=== PATIENT | male | born 1985 | race Caucasian/White ===

== ENCOUNTER 2016-11-26 20:21 | Emergency (ER) | payer OTHER ==
[~2016-11-26 20:21] MED LIST: NAPR500T2 PO; NORCOBULK PO; TRAM50TA2 PO
[2016-11-26] MEDS ORDERED: ACETAMINOPHEN 325 MG TAB As Ordered ONE (21:06)
[2016-11-26 21:32] LABS: BASO % 0.7 % (0.0-1.0); EOS # 0.4 K/mm3 (0.0-0.50); LARGE UNSTAINED CELL # 0.1 K/mm3 (0.0-0.4); LARGE UNSTAINED CELL % 1.7 % (0.0-4.0); LYMPH # 2.9 K/mm3 (1.5-4.5); LYMPH % 37.3 % (24.0-44.0); MEAN CORPUSCULAR HEMOGLOBIN 29.9 pg (27.0-33.0); MEAN CORPUSCULAR HGB CONC 35.2 g/dl (32.0-36.5); MONO # 0.4 K/mm3 (0.0-0.8); MONO % 5.8 % (0.0-5.0); NEUTROPHILS # 3.7 K/mm3 (1.8-7.7); NEUTROPHILS % 49.4 % (36.0-66.0); PLATELET COUNT, AUTOMATED 208 k/mm3 (150-450); RED CELL DISTRIBUTION WIDTH 12.7 % (11.5-14.5); WHITE BLOOD COUNT 7.4 K/mm3 (4.0-10.0)
[2016-11-26 21:37] LABS: INR 0.95
[2016-11-26 21:46] LABS: ANION GAP 6 MEQ/L (8-16); BLOOD UREA NITROGEN 9 MG/DL (7-18); CALCIUM LEVEL 8.6 MG/DL (8.5-10.1); CARBON DIOXIDE LEVEL 31 MEQ/L (21-32); CHLORIDE LEVEL 106 MEQ/L (98-107); CREATININE FOR GFR 1.08 MG/DL (0.70-1.30); GLOMERULAR FILTRATION RATE > 60.0 (>60); GLUCOSE, FASTING 97 MG/DL (70-105); POTASSIUM SERUM 4.5 MEQ/L (3.5-5.1); SODIUM LEVEL 143 MEQ/L (136-145)
--- NOTE | 2016-11-26 22:27 | EDDOCDS ---
Physician Documentation [facility] Name: Gabo Chilel Age: 31 yrs Sex: Male : 1985 Arrival Date: 11/26/2016 Time: 20:21 Bed I1 / M1 Private MD: NO PRIMARY PHYSICIAN, . Disposition: 11/26/16 22:24 Discharged to Home/Self Care. Impression: Strain of muscle and tendon of front wall of thorax - right sided. - Condition is Stable. - Discharge Instructions: Muscle Strain, Chest Wall Pain, [id number]. - Medication Reconciliation, Local Pharmacy Hours form. - [facility]; When: Call to arrange an appointment; Reason: Recheck today's complaints, Continuance of care. Follow up: [address] MD; When: Call to arrange an appointment; Reason: Recheck today's complaints, Continuance of care. Follow up: Tatum Kenny MD; When: Call to arrange an appointment; Reason: Continuance of care. Follow up: Serg Callahan MD; When: Call to arrange an appointment; Reason: Recheck today's complaints, Continuance of care. - Problem is new. - Symptoms are unchanged. Historical: - Allergies: no known allergies; - Home Meds: 1. none - PMHx: none; - PSHx: fourth finger, left fx repair; - Social history: Smoking status: Patient uses tobacco products, light tobacco smoker. No barriers to communication noted, The patient speaks fluent Cape Verdean. - Family history: Not pertinent. - : The pt / caregiver states he / she is not on anticoagulants. Home medication list is obtained from the patient. - Exposure Risk Screening:: None identified. Vital Signs: 11/26 20:25 BP 202 / 112 LA Sitting (auto/lg); Pulse 101; Resp 22; Temp 98.2(O); Pulse Ox 96% on ct3 R/A; Weight 99.79 kg / 220 lbs (R); Height 5 ft. 11 in. (180.34 cm) (R); Pain 7/10; 20:25 BP 169 / 109 RA Sitting (auto/lg); ct3 22:23 Pulse 96; Resp 18; Temp 97.2(O); Pulse Ox 94% on R/A; Pain 5/10; nb2 22:23 BP 144 / 108 RA Sitting (/lg); jmb 20:25 Body Mass Index 30.68 (99.79 kg, 180.34 cm) ct3 MDM: 21:00 Acetaminophen Tablet 975 mg PO once ordered. mo1 21:01 CBC with Diff Ordered. EDMS 21:01 BMP Ordered. EDMS 21:01 D-Dimer Quant Ordered. EDMS 21:01 Pt & Aptt Ordered. EDMS 21:01 ECG WITH READING ER PHYS+CARDIAG ordered. EDMS 21:02 Chest, 2 View (pa\E\lat) Ordered. EDMS 21:19 TROPONIN Ordered. EDMS 21:20 [facility] Payment Agreement was scanned into [employer] and attached to record. jp5 21:20 Financial registration complete. jp5 21:45 D-Dimer Quant Reviewed. mo1 21:45 Pt & Aptt Reviewed. mo1 21:46 CBC with Diff Reviewed. mo1 21:49 BMP Reviewed. mo1 21:51 TROPONIN Reviewed. mo1 Administered Medications: 21:22 Drug: Acetaminophen 975 mg [acetaminophen 325 mg tablet (3 tabs)] Route: PO; rs3 Signatures: Dispatcher [employer] EDNahed Vazquez RN RN rs3 Jose Hodgson PA PA mo1 Robert ArandaRN RN Josh Bhat jp5 The chart was reviewed and I authenticate all verbal orders and agree with the evaluation and treatment provided.Corrections: (The following items were deleted from the chart) 21:19 21:04 TROPONIN+LAB ordered. EDMS EDMS Attachments: 21:20 [facility] Payment Agreement jp5 MTDD
--- NOTE | 2016-11-26 22:27 | EDDOCDS ---
Nurse's Notes [facility] Name: Gabo Chilel Age: 31 yrs Sex: Male : 1985 Arrival Date: 11/26/2016 Time: 20:21 Bed I1 / M1 Private MD: NO PRIMARY PHYSICIAN, . Diagnosis: Strain of muscle and tendon of front wall of thorax-right sided Presentation: 11/26 20:27 Presenting complaint: Patient states: difficulty breathing, sharp right side chest pain rs3 for 2 days. H/o HT. has no primary care provider. not on any meds. Adult Sepsis Screening: The patient does not have new or worsening altered mentation. Patient's respiratory rate is less than 22. Systolic blood pressure is greater than 100. Patient has a qSOFA score of 0- Negative Sepsis Screen. Suicide/Homicide risk assessment- the patient denies having any suicidal and/or homicidal ideations and does not present with any other emotional, behavioral or mental health complaints. Status: Patient is not a customer service advisor or dependent. Transition of care: patient was not received from another setting of care. 20:27 Acuity: BEBETO Level 3 rs3 20:27 Method Of Arrival: Walkin/Carried/Asstd rs3 Triage Assessment: 20:30 General: Appears in no apparent distress. Pain: Location: right breast. HIV screening rs3 NA for this visit Offered previously. Respiratory: Onset: The symptoms/episode began/occurred gradually. Historical: - Allergies: no known allergies; - Home Meds: 1. none - PMHx: none; - PSHx: fourth finger, left fx repair; - Social history: Smoking status: Patient uses tobacco products, light tobacco smoker. No barriers to communication noted, The patient speaks fluent Algerian. - Family history: Not pertinent. - : The pt / caregiver states he / she is not on anticoagulants. Home medication list is obtained from the patient. - Exposure Risk Screening:: None identified. Screenin:18 Screening information is obtained from the patient. Fall risk: No risks identified. jmb Assistance ADL's: requires no assistance with activities of daily living. Abuse/DV Screen: The patient / caregiver reports he/she is: not in a situation that causes fear, pain or injury. Nutritional screening: No deficits noted. home support is adequate. 22:23 Advance Directives: Currently, there is no health care proxy. There is no active DNR jmb order. There is no living will. There is no Power of Vegetable Preparer. Assessment: 22:18 General: Appears in no apparent distress, Behavior is appropriate for age, cooperative. jmb Neurological: Level of Consciousness is awake, alert, obeys commands, Oriented to person, place, time, Wire Machine Cutter are equal bilaterally Gait is steady, Speech is normal, Facial symmetry appears normal, Facial symmetry: tongue is midline. Cardiovascular: Capillary refill < 3 seconds Heart tones present Pulses are all present. Rhythm is regular. Respiratory: Airway is patent Respiratory effort is even, unlabored, Respiratory pattern is regular, symmetrical, Breath sounds are diminished bilaterally. GI: Abdomen is obese, Bowel sounds present X 4 quads. Abd is soft and non tender X 4 quads. Derm: Skin is pink, warm & dry. Musculoskeletal: Range of motion intact in all extremities. 22:23 General: Patient instructed on discharge instructions. Patient asked if there were any jmb questions regarding discharge, patient stated no. Patient signed discharge instructions. Patient discharged in stable condition. . Vital Signs: 20:25 BP 202 / 112 LA Sitting (auto/lg); Pulse 101; Resp 22; Temp 98.2(O); Pulse Ox 96% on ct3 R/A; Weight 99.79 kg (R); Height 5 ft. 11 in. (180.34 cm) (R); Pain 7/10; 20:25 BP 169 / 109 RA Sitting (auto/lg); ct3 22:23 Pulse 96; Resp 18; Temp 97.2(O); Pulse Ox 94% on R/A; Pain 5/10; nb2 22:23 BP 144 / 108 RA Sitting (/lg); jmb 20:25 Body Mass Index 30.68 (99.79 kg, 180.34 cm) ct3 Vitals: 20:25 Log In Time: November 26, 2016 at 20:22. RN notified that patient meets Red Flag ct3 criteria. ED Course: 20:23 Patient visited by Maranda Montero PCA. ct3 20:23 Patient moved to Waiting ct3 20:25 NO PRIMARY PHYSICIAN, . is Private Physician. ct3 20:27 Patient visited by Maranda Montero PCA. ct3 20:27 Patient moved to Pre RCE ct3 20:29 Triage Initiated rs3 20:43 Patient moved to Triage 1 ttb 20:49 Jose Hodgson PA is PHCP. mo1 20:49 John Mcgregor DO is Attending Physician. mo1 20:56 Patient visited by oJse Hodgson PA. mo1 21:13 Patient moved to Radiology neri 21:17 Patient visited by Karen Tellez PCA. ar3 21:17 Pt & Aptt Sent. ar3 21:17 D-Dimer Quant Sent. ar3 21:17 BMP Sent. ar3 21:17 EKG done. (by ED staff). Reviewed by Jose HOLCOMB. ar3 21:20 [facility] [place] Agreement was scanned into [employer] and attached to record. jp5 21:23 TROPONIN Sent. rs3 21:38 Patient moved to TR3 neri 22:15 Patient moved to I1 / M1 jmb 22:18 The patient / caregiver is instructed regarding the plan of care and ED course. jmb 22:18 No IV's were initiated during this patient's visit. No procedures done that require jmb assistance. 22:20 Patient visited by Robert Aranda RN. jmb 22:23 Patient visited by Alia Song. nb2 22:23 [facility] is Referral Physician. mo1 22:[address] MD is Referral Physician. mo1 22:24 Tatum Kenny MD is Referral Physician. mo1 22:24 Serg Callahan MD is Referral Physician. mo1 Administered Medications: 21:22 Drug: Acetaminophen 975 mg [acetaminophen 325 mg tablet (3 tabs)] Route: PO; rs3 Order Results: Lab Order: CBC with Diff; SPEC'M 11/26/16 21:08 Test: WHITE BLOOD COUNT; Value: 7.4; Range: 4.0-10.0; Units: K/mm3; Status: F Test: RED BLOOD COUNT; Value: 5.50; Range: 4.30-6.10; Units: M/mm3; Status: F Test: HEMOGLOBIN; Value: 16.5; Range: 14.0-18.0; Units: g/dl; Status: F Test: HEMATOCRIT; Value: 46.7; Range: 42.0-52.0; Units: %; Status: F Test: MEAN CORPUSCULAR VOLUME; Value: 85.0; Range: 80.0-96.0; Units: fl; Status: F Test: MEAN CORPUSCULAR HEMOGLOBIN; Value: 29.9; Range: 27.0-33.0; Units: pg; Status: F Test: MEAN CORPUSCULAR HGB CONC; Value: 35.2; Range: 32.0-36.5; Units: g/dl; Status: F Test: RED CELL DISTRIBUTION WIDTH; Value: 12.7; Range: 11.5-14.5; Units: %; Status: F Test: PLATELET COUNT, AUTOMATED; Value: 208; Range: 150-450; Units: k/mm3; Status: F Test: NEUTROPHILS %; Value: 49.4; Range: 36.0-66.0; Units: %; Status: F Test: LYMPH %; Value: 37.3; Range: 24.0-44.0; Units: %; Status: F Test: MONO %; Value: 5.8; Range: 0.0-5.0; Abnormal: Above high normal; Units: %; Status: F Test: EOS %; Value: 5.0; Range: 0.0-3.0; Abnormal: Above high normal; Units: %; Status: F Test: BASO %; Value: 0.7; Range: 0.0-1.0; Units: %; Status: F Test: LARGE UNSTAINED CELL %; Value: 1.7; Range: 0.0-4.0; Units: %; Status: F Test: NEUTROPHILS #; Value: 3.7; Range: 1.8-7.7; Units: K/mm3; Status: F Test: LYMPH #; Value: 2.9; Range: 1.5-4.5; Units: K/mm3; Status: F Test: MONO #; Value: 0.4; Range: 0.0-0.8; Units: K/mm3; Status: F Test: EOS #; Value: 0.4; Range: 0.0-0.50; Units: K/mm3; Status: F Test: BASO #; Value: 0.0; Range: 0.0-0.2; Units: K/mm3; Status: F Test: LARGE UNSTAINED CELL #; Value: 0.1; Range: 0.0-0.4; Units: K/mm3; Status: F Lab Order: BMP; SPEC11/26/16 21:08 Test: GLUCOSE, FASTING; Value: 97; Range: 70-105; Units: MG/DL; Status: F Test: BLOOD UREA NITROGEN; Value: 9; Range: 7-18; Units: MG/DL; Status: F Test: CREATININE FOR GFR; Value: 1.08; Range: 0.70-1.30; Units: MG/DL; Status: F Test: GLOMERULAR FILTRATION RATE; Value: > 60.0; Range: >60; Status: F Test: SODIUM LEVEL; Value: 143; Range: 136-145; Units: MEQ/L; Status: F Test: POTASSIUM SERUM; Value: 4.5; Range: 3.5-5.1; Units: MEQ/L; Status: F Test: CHLORIDE LEVEL; Value: 106; Range: 98-107; Units: MEQ/L; Status: F Test: CARBON DIOXIDE LEVEL; Value: 31; Range: 21-32; Units: MEQ/L; Status: F Test: ANION GAP; Value: 6; Range: 8-16; Abnormal: Below low normal; Units: MEQ/L; Status: F Test: CALCIUM LEVEL; Value: 8.6; Range: 8.5-10.1; Units: MG/DL; Status: F Test Note: ; Units are mL/min/1.73 m2 Chronic Kidney Disease Staging per NKF: Stage I & II GFR >=60 Normal to Mildly Decreased Stage III GFR 30-59 Moderately Decreased Stage IV GFR 15-29 Severely Decreased Stage V GFR <15 Very Little GFR Left ESRD GFR <15 on PROGRAM[employer]INE[employer]ENT[employer] Lab Order: D-Dimer Quant; SPEC11/26/16 21:08 Test: D-DIMER QUANT; Value: 275.5; Range: <500; Units: ng/ml; Status: F Lab Order: Pt & Aptt; 11/26/16 21:08 Test: PROTHROMBIN TIME; Value: 12.8; Range: 12.3-14.5; Units: SECONDS; Status: F Test: INR; Value: 0.95; Status: F Test: PARTIAL THROMBOPLASTIN TIME; Value: 25.9; Range: 26.6-37.1; Abnormal: Below low normal; Units: SECONDS; Status: F Test Note: ; THERAPUTIC HUMAN INR VALUES INDICATIONS NORMAL RANGES PROPHYLAXIS/TREATMENT OF: VENOUS THROMBOSIS 2.0-3.0 PULMONARY EMBOLISM 2.0-3.0 PREVENTION OF SYSTEMIC EMBOLISM FROM: TISSUE HEART VALVES 2.0-3.0 ACUTE MYOCARDIAL INFARCTION 2.0-3.0 VALVULAR HEART DISEASE 2.0-3.0 ATRIAL FIBRILLATION 2.0-3.0 MECHANICAL VALVES(HIGH RISK) 2.5-3.5 RECURRENT MYOCARDIAL INFARCTION 2.5-3.5 Lab Order: TROPONIN; SPEC'M 11/26/16 21:08 Test: TROPONIN I; Value: < 0.02; Range: < 0.10; Units: NG/ML; Status: F Test Note: ; Troponin I Reference Interval for Fast Drinks LOCI: 99th Percentile= 0.00-0.045 ng/ml Risk Stratification: <= 0.10 ng/ml Decreased Risk for Adverse Clinical Events. 0.10-1.50 ng/ml Increased Risk for Adverse Clinical Events. Evaluation of additional criterion and/or repeat testing in 2-6 hours is suggested to rule out myocardial damage. >= 1.50 ng/ml Indicative of Myocardial Injury. Outcome: 22:23 Discharge Assessment: Patient awake, alert and oriented x 3. No cognitive and/or jmb functional deficits noted. Patient verbalized understanding of disposition instructions. Patient awake and alert. obeys commands, Oriented to person, place and time. Patient verbalized understanding of disposition instructions. Patient has no functional deficits. patient administered narcotics - no. The following High Risk Discharge criteria are identified: None. Discharged to home ambulatory, with significant other. Condition: stable Condition: improved. Discharge instructions given to patient, Instructed on discharge instructions, follow up and referral plans. Demonstrated understanding of instructions, Pt was receptive of discharge instructions/ teaching. No special radiology studies were completed. Property sent home with patient. 22:24 Discharge ordered by Provider. mo1 22:26 Patient left the ED. jmb Signatures: Jose Johnston Rosemary, RN RN rs3 Karen Tellez, TRIMMER OPERATOR THREE KNIFE TRIMMER OPERATOR THREE KNIFE ar3 Maranda Montero, TRIMMER OPERATOR THREE KNIFE TRIMMER OPERATOR THREE KNIFE ct3 Amanda Hernandez RN RN ttb Jose Hodgson PA PA mo1 Robert Aranda,RN RN gelab Josh Judge jp5 Alia Song nb2 MTDD
--- NOTE | 2016-11-27 07:50 | REP ---
Clinical: Acute chest pain . Comparison: 11/29/2014 . Technique: PA and lateral. Findings: The mediastinum and cardiac silhouette are normal. The lung benjamin are clear and without acute consolidation, effusion, or pneumothorax. The skeletal structures are intact and normal. Impression: 1. No acute cardiopulmonary process. Signed by Watson Peña MD 11/27/2016 07:41 A
--- NOTE | 2016-11-27 08:31 | ECGEPIP ---
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
--- NOTE | 2016-11-28 23:26 | EDDOCDS ---
Physician Documentation [facility] Name: Gabo Chilel Age: 31 yrs Sex: Male : 1985 Arrival Date: 11/26/2016 Time: 20:21 Bed I1 / M1 Private MD: NO PRIMARY PHYSICIAN, . Disposition: 11/26/16 22:24 Discharged to Home/Self Care. Impression: Strain of muscle and tendon of front wall of thorax - right sided. - Condition is Stable. - Discharge Instructions: Muscle Strain, Chest Wall Pain, [id number]. - Medication Reconciliation, Local Pharmacy Hours form. - [facility]; When: Call to arrange an appointment; Reason: Recheck today's complaints, Continuance of care. Follow up: [facility] MD; When: Call to arrange an appointment; Reason: Recheck today's complaints, Continuance of care. Follow up: Tatum Kenny MD; When: Call to arrange an appointment; Reason: Continuance of care. Follow up: Serg Callahan MD; When: Call to arrange an appointment; Reason: Recheck today's complaints, Continuance of care. - Problem is new. - Symptoms are unchanged. Historical: - Allergies: no known allergies; - Home Meds: 1. none - PMHx: none; - PSHx: fourth finger, left fx repair; - Social history: Smoking status: Patient uses tobacco products, light tobacco smoker. No barriers to communication noted, The patient speaks fluent Libyan. - Family history: Not pertinent. - : The pt / caregiver states he / she is not on anticoagulants. Home medication list is obtained from the patient. - Exposure Risk Screening:: None identified. Vital Signs: 11/26 20:25 BP 202 / 112 LA Sitting (auto/lg); Pulse 101; Resp 22; Temp 98.2(O); Pulse Ox 96% on ct3 R/A; Weight 99.79 kg / 220 lbs (R); Height 5 ft. 11 in. (180.34 cm) (R); Pain 7/10; 20:25 BP 169 / 109 RA Sitting (auto/lg); ct3 22:23 Pulse 96; Resp 18; Temp 97.2(O); Pulse Ox 94% on R/A; Pain 5/10; nb2 22:23 BP 144 / 108 RA Sitting (/lg); jmb 20:25 Body Mass Index 30.68 (99.79 kg, 180.34 cm) ct3 MDM: 21:00 Acetaminophen Tablet 975 mg PO once ordered. mo1 21:01 CBC with Diff Ordered. EDMS 21:01 BMP Ordered. EDMS 21:01 D-Dimer Quant Ordered. EDMS 21:01 Pt & Aptt Ordered. EDMS 21:01 ECG WITH READING ER PHYS+CARDIAG ordered. EDMS 21:02 Chest, 2 View (pa\E\lat) Ordered. EDMS 21:19 TROPONIN Ordered. EDMS 21:20 [facility] Payment Agreement was scanned into [employer] and attached to record. jp5 21:20 Financial registration complete. jp5 21:45 D-Dimer Quant Reviewed. mo1 21:45 Pt & Aptt Reviewed. mo1 21:46 CBC with Diff Reviewed. mo1 21:49 BMP Reviewed. mo1 21:51 TROPONIN Reviewed. mo1 11/27 11:04 T-Sheet-- Draft Copy was scanned into [employer] and attached to record. gb 11:05 ECG/EKG was scanned into [employer] and attached to record. gb Administered Medications: 11/26 21:22 Drug: Acetaminophen 975 mg [acetaminophen 325 mg tablet (3 tabs)] Route: PO; rs3 Signatures: Dispatcher [employer] EDOK Rhonda Burns, Reg Reg gb Nahed Francisco RN RN rs3 Jose Hodgson PA PA mo1 Robert Aranda RN RN Josh Bhat jp5 The chart was reviewed and I authenticate all verbal orders and agree with the evaluation and treatment provided.Corrections: (The following items were deleted from the chart) 21:19 21:04 TROPONIN+LAB ordered. EDOK EDMS Attachments: 21:20 [facility] Payment Agreement 5 11/27 11:04 T-Sheet-- Draft Copy gb 11:05 ECG/EKG gb Chart Complete MTDD
--- NOTE | 2016-11-28 23:27 | EDDOCDS ---
Nurse's Notes [facility] Name: Gabo Chilel Age: 31 yrs Sex: Male : 1985 Arrival Date: 11/26/2016 Time: 20:21 Bed I1 / M1 Private MD: NO PRIMARY PHYSICIAN, . Diagnosis: Strain of muscle and tendon of front wall of thorax-right sided Presentation: 11/26 20:27 Presenting complaint: Patient states: difficulty breathing, sharp right side chest pain rs3 for 2 days. H/o HT. has no primary care provider. not on any meds. Adult Sepsis Screening: The patient does not have new or worsening altered mentation. Patient's respiratory rate is less than 22. Systolic blood pressure is greater than 100. Patient has a qSOFA score of 0- Negative Sepsis Screen. Suicide/Homicide risk assessment- the patient denies having any suicidal and/or homicidal ideations and does not present with any other emotional, behavioral or mental health complaints. Status: Patient is not a room service server or dependent. Transition of care: patient was not received from another setting of care. 20:27 Acuity: BEBETO Level 3 rs3 20:27 Method Of Arrival: Walkin/Carried/Asstd rs3 Triage Assessment: 20:30 General: Appears in no apparent distress. Pain: Location: right breast. HIV screening rs3 NA for this visit Offered previously. Respiratory: Onset: The symptoms/episode began/occurred gradually. Historical: - Allergies: no known allergies; - Home Meds: 1. none - PMHx: none; - PSHx: fourth finger, left fx repair; - Social history: Smoking status: Patient uses tobacco products, light tobacco smoker. No barriers to communication noted, The patient speaks fluent Uruguayan. - Family history: Not pertinent. - : The pt / caregiver states he / she is not on anticoagulants. Home medication list is obtained from the patient. - Exposure Risk Screening:: None identified. Screenin:18 Screening information is obtained from the patient. Fall risk: No risks identified. jmb Assistance ADL's: requires no assistance with activities of daily living. Abuse/DV Screen: The patient / caregiver reports he/she is: not in a situation that causes fear, pain or injury. Nutritional screening: No deficits noted. home support is adequate. 22:23 Advance Directives: Currently, there is no health care proxy. There is no active DNR jmb order. There is no living will. There is no Power of Stacker Straightener. Assessment: 22:18 General: Appears in no apparent distress, Behavior is appropriate for age, cooperative. jmb Neurological: Level of Consciousness is awake, alert, obeys commands, Oriented to person, place, time, Performance Test Architect are equal bilaterally Gait is steady, Speech is normal, Facial symmetry appears normal, Facial symmetry: tongue is midline. Cardiovascular: Capillary refill < 3 seconds Heart tones present Pulses are all present. Rhythm is regular. Respiratory: Airway is patent Respiratory effort is even, unlabored, Respiratory pattern is regular, symmetrical, Breath sounds are diminished bilaterally. GI: Abdomen is obese, Bowel sounds present X 4 quads. Abd is soft and non tender X 4 quads. Derm: Skin is pink, warm & dry. Musculoskeletal: Range of motion intact in all extremities. 22:23 General: Patient instructed on discharge instructions. Patient asked if there were any jmb questions regarding discharge, patient stated no. Patient signed discharge instructions. Patient discharged in stable condition. . Vital Signs: 20:25 BP 202 / 112 LA Sitting (auto/lg); Pulse 101; Resp 22; Temp 98.2(O); Pulse Ox 96% on ct3 R/A; Weight 99.79 kg (R); Height 5 ft. 11 in. (180.34 cm) (R); Pain 7/10; 20:25 BP 169 / 109 RA Sitting (auto/lg); ct3 22:23 Pulse 96; Resp 18; Temp 97.2(O); Pulse Ox 94% on R/A; Pain 5/10; nb2 22:23 BP 144 / 108 RA Sitting (/lg); jmb 20:25 Body Mass Index 30.68 (99.79 kg, 180.34 cm) ct3 Vitals: 20:25 Log In Time: November 26, 2016 at 20:22. RN notified that patient meets Red Flag ct3 criteria. ED Course: 20:23 Patient visited by Maranda Montero PCA. ct3 20:23 Patient moved to Waiting ct3 20:25 NO PRIMARY PHYSICIAN, . is Private Physician. ct3 20:27 Patient visited by Maranda Montero PCA. ct3 20:27 Patient moved to Pre RCE ct3 20:29 Triage Initiated rs3 20:43 Patient moved to Triage 1 ttb 20:49 Claudio Hodgson PA is PHCP. mo1 20:49 John Mcgregor DO is Attending Physician. mo1 20:56 Patient visited by Claudio Hodgson PA. mo1 21:13 Patient moved to Radiology neri 21:17 Patient visited by Karen Tellez PCA. ar3 21:17 Pt & Aptt Sent. ar3 21:17 D-Dimer Quant Sent. ar3 21:17 BMP Sent. ar3 21:17 EKG done. (by ED staff). Reviewed by Claudio HOLCOMB. ar3 21:20 [facility] [place] Payment Agreement was scanned into [employer] and attached to record. jp5 21:23 TROPONIN Sent. rs3 21:38 Patient moved to TR3 neri 22:15 Patient moved to I1 / M1 jmb 22:18 The patient / caregiver is instructed regarding the plan of care and ED course. jmb 22:18 No IV's were initiated during this patient's visit. No procedures done that require jmb assistance. 22:20 Patient visited by Robert Aranda RN. jmb 22:23 Patient visited by Alia Song. nb2 22:23 [facility] is Referral Physician. mo1 22:[address] MD is Referral Physician. mo1 22:24 Tatum Kenny MD is Referral Physician. mo1 22:24 Serg Callahan MD is Referral Physician. mo1 11/27 08:10 Chest, 2 View (pa\E\lat) Returned. EDMS 08:34 EKG-ADULT Returned. EDMS 11:04 T-Sheet-- Draft Copy was scanned into [employer] and attached to record. gb 11:05 ECG/EKG was scanned into [employer] and attached to record. gb Administered Medications: 11/26 21:22 Drug: Acetaminophen 975 mg [acetaminophen 325 mg tablet (3 tabs)] Route: PO; rs3 Order Results: Lab Order: CBC with Diff; SPEC'M 11/26/16 21:08 Test: WHITE BLOOD COUNT; Value: 7.4; Range: 4.0-10.0; Units: K/mm3; Status: F Test: RED BLOOD COUNT; Value: 5.50; Range: 4.30-6.10; Units: M/mm3; Status: F Test: HEMOGLOBIN; Value: 16.5; Range: 14.0-18.0; Units: g/dl; Status: F Test: HEMATOCRIT; Value: 46.7; Range: 42.0-52.0; Units: %; Status: F Test: MEAN CORPUSCULAR VOLUME; Value: 85.0; Range: 80.0-96.0; Units: fl; Status: F Test: MEAN CORPUSCULAR HEMOGLOBIN; Value: 29.9; Range: 27.0-33.0; Units: pg; Status: F Test: MEAN CORPUSCULAR HGB CONC; Value: 35.2; Range: 32.0-36.5; Units: g/dl; Status: F Test: RED CELL DISTRIBUTION WIDTH; Value: 12.7; Range: 11.5-14.5; Units: %; Status: F Test: PLATELET COUNT, AUTOMATED; Value: 208; Range: 150-450; Units: k/mm3; Status: F Test: NEUTROPHILS %; Value: 49.4; Range: 36.0-66.0; Units: %; Status: F Test: LYMPH %; Value: 37.3; Range: 24.0-44.0; Units: %; Status: F Test: MONO %; Value: 5.8; Range: 0.0-5.0; Abnormal: Above high normal; Units: %; Status: F Test: EOS %; Value: 5.0; Range: 0.0-3.0; Abnormal: Above high normal; Units: %; Status: F Test: BASO %; Value: 0.7; Range: 0.0-1.0; Units: %; Status: F Test: LARGE UNSTAINED CELL %; Value: 1.7; Range: 0.0-4.0; Units: %; Status: F Test: NEUTROPHILS #; Value: 3.7; Range: 1.8-7.7; Units: K/mm3; Status: F Test: LYMPH #; Value: 2.9; Range: 1.5-4.5; Units: K/mm3; Status: F Test: MONO #; Value: 0.4; Range: 0.0-0.8; Units: K/mm3; Status: F Test: EOS #; Value: 0.4; Range: 0.0-0.50; Units: K/mm3; Status: F Test: BASO #; Value: 0.0; Range: 0.0-0.2; Units: K/mm3; Status: F Test: LARGE UNSTAINED CELL #; Value: 0.1; Range: 0.0-0.4; Units: K/mm3; Status: F Lab Order: BMP; SPEC'11/26/16 21:08 Test: GLUCOSE, FASTING; Value: 97; Range: 70-105; Units: MG/DL; Status: F Test: BLOOD UREA NITROGEN; Value: 9; Range: 7-18; Units: MG/DL; Status: F Test: CREATININE FOR GFR; Value: 1.08; Range: 0.70-1.30; Units: MG/DL; Status: F Test: GLOMERULAR FILTRATION RATE; Value: > 60.0; Range: >60; Status: F Test: SODIUM LEVEL; Value: 143; Range: 136-145; Units: MEQ/L; Status: F Test: POTASSIUM SERUM; Value: 4.5; Range: 3.5-5.1; Units: MEQ/L; Status: F Test: CHLORIDE LEVEL; Value: 106; Range: 98-107; Units: MEQ/L; Status: F Test: CARBON DIOXIDE LEVEL; Value: 31; Range: 21-32; Units: MEQ/L; Status: F Test: ANION GAP; Value: 6; Range: 8-16; Abnormal: Below low normal; Units: MEQ/L; Status: F Test: CALCIUM LEVEL; Value: 8.6; Range: 8.5-10.1; Units: MG/DL; Status: F Test Note: ; Units are mL/min/1.73 m2 Chronic Kidney Disease Staging per NKF: Stage I & II GFR >=60 Normal to Mildly Decreased Stage III GFR 30-59 Moderately Decreased Stage IV GFR 15-29 Severely Decreased Stage V GFR <15 Very Little GFR Left ESRD GFR <15 on FIELD ARTILLERY OPERATIONS SPECIALIST Lab Order: D-Dimer Quant; SPEC'11/26/16 21:08 Test: D-DIMER QUANT; Value: 275.5; Range: <500; Units: ng/ml; Status: F Lab Order: Pt & Aptt; SPEC'M 11/26/16 21:08 Test: PROTHROMBIN TIME; Value: 12.8; Range: 12.3-14.5; Units: SECONDS; Status: F Test: INR; Value: 0.95; Status: F Test: PARTIAL THROMBOPLASTIN TIME; Value: 25.9; Range: 26.6-37.1; Abnormal: Below low normal; Units: SECONDS; Status: F Test Note: ; THERAPUTIC HUMAN INR VALUES INDICATIONS NORMAL RANGES PROPHYLAXIS/TREATMENT OF: VENOUS THROMBOSIS 2.0-3.0 PULMONARY EMBOLISM 2.0-3.0 PREVENTION OF SYSTEMIC EMBOLISM FROM: TISSUE HEART VALVES 2.0-3.0 ACUTE MYOCARDIAL INFARCTION 2.0-3.0 VALVULAR HEART DISEASE 2.0-3.0 ATRIAL FIBRILLATION 2.0-3.0 MECHANICAL VALVES(HIGH RISK) 2.5-3.5 RECURRENT MYOCARDIAL INFARCTION 2.5-3.5 Lab Order: TROPONIN; SPEC'M 11/26/16 21:08 Test: TROPONIN I; Value: < 0.02; Range: < 0.10; Units: NG/ML; Status: F Test Note: ; Troponin I Reference Interval for [employer] LOCI: 99th Percentile= 0.00-0.045 ng/ml Risk Stratification: <= 0.10 ng/ml Decreased Risk for Adverse Clinical Events. 0.10-1.50 ng/ml Increased Risk for Adverse Clinical Events. Evaluation of additional criterion and/or repeat testing in 2-6 hours is suggested to rule out myocardial damage. >= 1.50 ng/ml Indicative of Myocardial Injury. Radiology Order: EKG-ADULT Test: EKG-ADULT REASON FOR EXAMINATION: Chest Pain; Stationary ECG Study; [facility] - ED; ; Test Date: 2016-11-26; Pat Name: GABO CHILEL Department:; Room: -; Gender: M Jumpbasting Facing Baster: ar; : 1985 Requested By: CLAUDIO Aquino; Order Number: [id number] [place] MD: Phylicia Villar; Measurements; Intervals [place]; Rate: 88 P: 40; KS: 145 QRS: 48; QRSD: 92 T: 52; QT: 343; QTc: 416; Interpretive Statements; SINUS RHYTHM; SIMILAR 11/29/14; Electronically Signed On 11-27-2016 8:30:54 EST by Phylicia Villar; Radiology Order: Chest, 2 View (pa\E\lat) Test: Chest, 2 View (pa\E\lat) REASON FOR EXAMINATION: Chest Pain; Clinical: Acute chest pain .; ; Comparison: 11/29/2014 .; ; Technique: PA and lateral.; ; Findings:; The mediastinum and cardiac silhouette are normal. The lung benjamin are clear and; without acute consolidation, effusion, or pneumothorax. The skeletal structures; are intact and normal.; ; Impression:; 1. No acute cardiopulmonary process.; ; ; Signed by; Watson Peña MD 11/27/2016 07:41 A; Outcome: 22:23 Discharge Assessment: Patient awake, alert and oriented x 3. No cognitive and/or jmb functional deficits noted. Patient verbalized understanding of disposition instructions. Patient awake and alert. obeys commands, Oriented to person, place and time. Patient verbalized understanding of disposition instructions. Patient has no functional deficits. patient administered narcotics - no. The following High Risk Discharge criteria are identified: None. Discharged to home ambulatory, with significant other. Condition: stable Condition: improved. Discharge instructions given to patient, Instructed on discharge instructions, follow up and referral plans. Demonstrated understanding of instructions, Pt was receptive of discharge instructions/ teaching. No special radiology studies were completed. Property sent home with patient. 22:24 Discharge ordered by Provider. mo1 22:26 Patient left the ED. kaylin Signatures: Dispatcher [employer] EDMS Jose Johnston Gloria, Reg Reg Nahed Hollins,RN RN rs3 Karen Tellez, SOLAR ENERGY CONSULTANT AND DESIGNER SOLAR ENERGY CONSULTANT AND DESIGNER ar3 Maranda Montero, SOLAR ENERGY CONSULTANT AND DESIGNER SOLAR ENERGY CONSULTANT AND DESIGNER ct3 Amanda Hernandez, RN RN Claudio Hinojosa PA PA mo1 Robert Aranda,AUBREE RN Josh Bhat jp5 Alia Song2 Chart Complete MTDD
--- NOTE | 2016-11-28 23:28 | EDDOCDS ---
Physician Documentation [facility] Name: Gabo Chilel Age: 31 yrs Sex: Male : 1985 Arrival Date: 11/26/2016 Time: 20:21 Bed I1 / M1 Private MD: NO PRIMARY PHYSICIAN, . Disposition: 11/26/16 22:24 Discharged to Home/Self Care. Impression: Strain of muscle and tendon of front wall of thorax - right sided. - Condition is Stable. - Discharge Instructions: Muscle Strain, Chest Wall Pain, [id number]. - Medication Reconciliation, Local Pharmacy Hours form. - [facility] up: [facility]; When: Call to arrange an appointment; Reason: Recheck today's complaints, Continuance of care. Follow up: [facility] MD; When: Call to arrange an appointment; Reason: Recheck today's complaints, Continuance of care. Follow up: Tatum Kenny MD; When: Call to arrange an appointment; Reason: Continuance of care. Follow up: Serg Callahan MD; When: Call to arrange an appointment; Reason: Recheck today's complaints, Continuance of care. - Problem is new. - Symptoms are unchanged. Historical: - Allergies: no known allergies; - Home Meds: 1. none - PMHx: none; - PSHx: fourth finger, left fx repair; - Social history: Smoking status: Patient uses tobacco products, light tobacco smoker. No barriers to communication noted, The patient speaks fluent Barbadian. - Family history: Not pertinent. - : The pt / caregiver states he / she is not on anticoagulants. Home medication list is obtained from the patient. - Exposure Risk Screening:: None identified. Vital Signs: 11/26 20:25 BP 202 / 112 LA Sitting (auto/lg); Pulse 101; Resp 22; Temp 98.2(O); Pulse Ox 96% on ct3 R/A; Weight 99.79 kg / 220 lbs (R); Height 5 ft. 11 in. (180.34 cm) (R); Pain 7/10; 20:25 BP 169 / 109 RA Sitting (auto/lg); ct3 22:23 Pulse 96; Resp 18; Temp 97.2(O); Pulse Ox 94% on R/A; Pain 5/10; nb2 22:23 BP 144 / 108 RA Sitting (/lg); jmb 20:25 Body Mass Index 30.68 (99.79 kg, 180.34 cm) ct3 MDM: 21:00 Acetaminophen Tablet 975 mg PO once ordered. mo1 21:01 CBC with Diff Ordered. EDMS 21:01 BMP Ordered. EDMS 21:01 D-Dimer Quant Ordered. EDMS 21:01 Pt & Aptt Ordered. EDMS 21:01 ECG WITH READING ER PHYS+CARDIAG ordered. EDMS 21:02 Chest, 2 View (pa\E\lat) Ordered. EDMS 21:19 TROPONIN Ordered. EDMS 21:20 [facility] [place] Payment Agreement was scanned into [employer] and attached to record. jp5 21:20 Financial registration complete. jp5 21:45 D-Dimer Quant Reviewed. mo1 21:45 Pt & Aptt Reviewed. mo1 21:46 CBC with Diff Reviewed. mo1 21:49 BMP Reviewed. mo1 21:51 TROPONIN Reviewed. mo1 11/27 11:04 T-Sheet-- Draft Copy was scanned into [employer] and attached to record. gb 11:05 ECG/EKG was scanned into [employer] and attached to record. gb Administered Medications: 11/26 21:22 Drug: Acetaminophen 975 mg [acetaminophen 325 mg tablet (3 tabs)] Route: PO; rs3 Signatures: Dispatcher [employer] EDNJ Rhonda Burns, Reg Reg gb Nahed Francisco RN RN rs3 Jose Hodgson PA PA mo1 Robert Aranda RN RN Josh Bhat jp5 The chart was reviewed and I authenticate all verbal orders and agree with the evaluation and treatment provided.Corrections: (The following items were deleted from the chart) 21:19 21:04 TROPONIN+LAB ordered. EDNJ EDMS Attachments: 21:20 [facility] Payment Agreement 5 11/27 11:04 T-Sheet-- Draft Copy gb 11:05 ECG/EKG gb Chart Complete MTDD
== END 2016-11-26 22:26 | disposition home or self-care (01) ==
LOC: M ED 20:21
DX: M94.0 Chondrocostal junction syndrome [Tietze] (principal); R07.89 Other chest pain; F17.200 Nicotine dependence, unspecified, uncomplicated

== ENCOUNTER → 2017-03-09 | Outpatient (REF) | payer OTHER ==
[2017-03-09 16:40] LABS: ANION GAP 6 MEQ/L (8-16); BASO % 0.5 % (0.0-1.0); BLOOD UREA NITROGEN 9 MG/DL (7-18); CALCIUM LEVEL 8.7 MG/DL (8.5-10.1); CARBON DIOXIDE LEVEL 31 MEQ/L (21-32); CHLORIDE LEVEL 105 MEQ/L (98-107); CREATININE FOR GFR 0.86 MG/DL (0.70-1.30); EOS # 0.2 K/mm3 (0.0-0.50); EOS % 3.2 % (0.0-3.0); GLOMERULAR FILTRATION RATE > 60.0 (>60); GLUCOSE, FASTING 98 MG/DL (70-105); LYMPH # 2.7 K/mm3 (1.5-4.5); LYMPH % 45.2 % (24.0-44.0); MEAN CORPUSCULAR HGB CONC 35.6 g/dl (32.0-36.5); MEAN CORPUSCULAR VOLUME 87.2 fl (80.0-96.0); MONO # 0.4 K/mm3 (0.0-0.8); MONO % 6.4 % (0.0-5.0); NEUTROPHILS # 2.5 K/mm3 (1.8-7.7); NEUTROPHILS % 42.5 % (36.0-66.0); RED CELL DISTRIBUTION WIDTH 11.7 % (11.5-14.5); SODIUM LEVEL 142 MEQ/L (136-145); WHITE BLOOD COUNT 5.9 K/mm3 (4.0-10.0)
== END ==
LOC: M LABDRAW1 15:49
PROVIDERS: ATTEND Family Medicine Adult Medicine
DX: F11.20 Opioid dependence, uncomplicated (principal); R53.83 Other fatigue

== ENCOUNTER → 2017-03-20 | Outpatient (REF) | payer OTHER ==
[2017-03-21 10:24] LABS: CONTROL LINE MONO INT CTR LINE PRESENT
== END ==
LOC: M LABDRAW1 17:03
PROVIDERS: ATTEND Family Medicine Adult Medicine
DX: R53.83 Other fatigue (principal)

== ENCOUNTER 2018-09-28 19:21 | Emergency (ER) | payer OTHER | END 2018-09-28 20:55 | disposition home or self-care (01) | LOC: M ED 19:21 | DX: R03.0 Elevated blood-pressure reading, without diagnosis of hypertension (principal); Z72.0 Tobacco use; Z79.899 Other long term (current) drug therapy | CPT/HCPCS: 99283 ==

== ENCOUNTER → 2018-10-10 | Outpatient (CLI) | payer MEDICAID ==
[~2018-10-10] MED LIST changes: +ADDE30CA3; +NAPR-885 PO; -NAPR500T2 PO; +SUBO8MIS SL
== END ==
LOC: M OUTALCOH 08:25
PROVIDERS: ATTEND Psychiatry & Neurology Psychiatry
DX: Z03.89 Encounter for observation for other suspected diseases and conditions ruled out (principal)

== ENCOUNTER 2018-10-28 11:00 | Outpatient (RCR) | payer MEDICAID | END 2018-11-14 | LOC: M OUTALCOH 11:00 | PROVIDERS: ATTEND Psychiatry & Neurology Psychiatry | DX: Z03.89 Encounter for observation for other suspected diseases and conditions ruled out (principal) ==

== ENCOUNTER → 2019-07-14 | Outpatient (CLI) | payer MEDICAID | LOC: M OUTALCOH 07:55 | PROVIDERS: ATTEND Psychiatry & Neurology Psychiatry | DX: F15.20 Other stimulant dependence, uncomplicated (principal) ==

== ENCOUNTER 2019-07-24 09:00 | Outpatient (RCR) | payer MEDICAID | END 2019-08-14 | LOC: M OUTALCOH 09:00 | PROVIDERS: ATTEND Psychiatry & Neurology Psychiatry | DX: F15.20 Other stimulant dependence, uncomplicated (principal); F17.200 Nicotine dependence, unspecified, uncomplicated ==

== ENCOUNTER 2019-08-19 06:41 | Emergency (ER) | payer MEDICAID, OTHER ==
[~2019-08-19] VITALS: Ht 177.8 cm; Wt 100.0 kg
--- NOTE | 2019-08-19 07:21 | REP ---
Right hand four views: There are no comparisons. There is a nondisplaced impaction fracture in the head/neck of the ring finger metacarpal. There is no dislocation. No other fractures are identified. Mineralization and joint spaces are otherwise unremarkable. There are no calcifications or foreign bodies. Impression: Nondisplaced impaction fracture of the head/neck of the ring finger metacarpal. Electronically Signed by Hans Antony MD 08/19/2019 07:12 A
[2019-08-19] MEDS ORDERED: IBUPROFEN 600 MG TAB PO ONE (08:30)
[2019-08-19 08:32] VITALS: BP 150/98
== END 2019-08-19 08:53 | disposition home or self-care (01) ==
LOC: M ED 06:41
DX: S62.644A Nondisplaced fracture of proximal phalanx of right ring finger, initial encounter for closed fracture (principal); W22.09XA Striking against other stationary object, initial encounter; Y92.098 Other place in other non-institutional residence as the place of occurrence of the external cause; F19.10 Other psychoactive substance abuse, uncomplicated; F17.210 Nicotine dependence, cigarettes, uncomplicated; Z79.899 Other long term (current) drug therapy

== ENCOUNTER 2019-09-08 23:51 | Emergency (ER) | payer OTHER ==
[~2019-09-08] VITALS: Ht 175.3 cm; Wt 91.3 kg
[2019-09-09] MEDS ORDERED: NS 1,000 ML IV ONE (00:15)
[2019-09-09] MEDS ORDERED: ISOVUE-370 76% 100ML VIAL (Q9967) As Ordered ONE (00:17)
[2019-09-09 01:07] LABS: BASO % 0.1 % (0.0-1.0); EOS # 0.1 10^3/uL (0.0-0.5); EOS % 0.6 % (0.0-3.0); HEMATOCRIT 40.9 % (42.0-52.0); HEMOGLOBIN 13.9 g/dl (13.5-17.5); LYMPH # 1.7 10^3/uL (1.5-5.0); LYMPH % 11.7 % (24.0-44.0); MEAN CORPUSCULAR HEMOGLOBIN 29.3 pg (27.0-33.0); MEAN CORPUSCULAR VOLUME 86.3 fl (80.0-96.0); MONO # 0.8 10^3/uL (0.0-0.8); MONO % 5.8 % (0.0-5.0); NEUTROPHILS # 11.5 10^3/uL (1.5-8.5); NEUTROPHILS % 81.2 % (36.0-66.0); PLATELET COUNT, AUTOMATED 206 10^3/uL (150-450); RED BLOOD COUNT 4.74 10^6/uL (4.30-6.10); WHITE BLOOD COUNT 14.2 10^3/uL (4.0-10.0)
--- NOTE | 2019-09-09 01:11 | REPVR ---
PROCEDURE INFORMATION: Exam: CT Maxillofacial Without Contrast Exam date and time: 09/09/2019 12:19 AM Age: 34 years old Clinical history: Pain; Facial; Additional info: Trauma TECHNIQUE: Imaging protocol: Computed tomography images of the face without contrast. Radiation optimization: All CT scans at this facility use at least one of these dose optimization techniques: automated exposure control; mA and/or kV adjustment per patient size (includes targeted exams where dose is matched to clinical indication); or iterative reconstruction. COMPARISON: No relevant prior studies available. FINDINGS: Orbits: The globes and orbits are intact and normal in appearance. Mastoid air cells: Mild opacification of the left mastoid air cells. The right mastoid air cells are clear. Auditory system: The middle ear spaces are clear. Sinuses: There is a small mucous retention cyst in the left maxillary sinus. No air-fluid levels are noted in the sinuses. Bones/joints: There is an acute nondisplaced linear fracture line in the right mandibular ramus (images 14 and 15 of the sagittal series 380). There is an acute nondisplaced linear skull fracture involving the left temporal bone (images 1-33 of the axial series 3021). No other facial bone fractures are noted. The temporomandibular joints are unremarkable. Brain: There are small acute bilateral subdural hematomas over the temporal regions and small acute hemorrhagic contusions in both temporal lobes. There is a small amount of pneumocephalus in the extra-axial space over the left temporal convexity just anterior to the left mastoid air cells. See CT head report on 09/09/2019 for details. Nasal cavity: The nasal septum is deviated to the left of midline and there is a 3 mm nasal septal spur. Dental: No dental caries or periapical abscess is identified. Nasopharynx: Unremarkable. Oropharynx: Unremarkable. No significant tonsillar hypertrophy. No tonsillar or peritonsillar abscess. Submandibular/Parotid glands: Unremarkable. Soft tissues: There is soft tissue swelling and bruising in the right periorbital region and right cheek. There are subgaleal hematomas. IMPRESSION: 1. Acute nondisplaced fracture of the right mandibular ramus. 2. Acute nondisplaced linear skull fracture involving the left temporal bone. 3. Small acute bilateral subdural hematomas over the temporal regions and small acute hemorrhagic contusions in both temporal lobes. See CT head report on 09/09/2019 for details. 4. Soft tissue swelling and bruising in the right periorbital region and right cheek. Electronically signed by: Alek Duenas On 09/09/2019 01:10:20 AM
--- NOTE | 2019-09-09 01:11 | REPVR ---
PROCEDURE INFORMATION: Exam: CT Head Without Contrast Exam date and time: 09/09/2019 12:19 AM Age: 34 years old Clinical history: Pain; Headache; Additional info: Trauma TECHNIQUE: Imaging protocol: Computed tomography of the head without contrast. Radiation optimization: All CT scans at this facility use at least one of these dose optimization techniques: automated exposure control; mA and/or kV adjustment per patient size (includes targeted exams where dose is matched to clinical indication); or iterative reconstruction. COMPARISON: CT Maxilofacial w/out contrast 09/09/2019 12:17:09 AM FINDINGS: Brain: There is an acute right temporal subdural hematoma measuring up to 6 mm in thickness and an acute left temporal subdural hematoma measuring up to 3 mm in thickness. There is an 8 mm acute hemorrhagic contusion of the right temporal lobe (image 9 of the axial series 201). There is also a 10 mm acute hemorrhagic contusion of the left temporal lobe (image 8 of the axial series 201). There is a small amount of pneumocephalus in the extra-axial space over the frontal convexity (images 6-7 of the axial series 201). No significant mass effect or herniation is noted. There is no evidence for an acute large vessel territorial infarct. The ayala-white matter differentiation is preserved. Brainstem: Unremarkable. Midline shift: There is no midline shift. Ventricles: Normal. No ventriculomegaly. Bones/joints: There is an acute nondisplaced linear skull fracture involving the left temporal bone, which is better visualized in the maxillofacial CT on 09/09/2019. Sinuses: Visualized sinuses are well aerated. No fluid levels. Mastoid air cells: There is mild opacification of the left mastoid air cells. The right mastoid air cells are clear. Soft tissues: There is soft tissue swelling and bruising in the right periorbital region and right cheek. There are subgaleal hematomas and abrasions along the anterior and posterior aspects of the head. IMPRESSION: 1. Acute right temporal subdural hematoma measuring up to 6 mm in thickness and an acute left temporal subdural hematoma with associated pneumocephalus measuring up to 3 mm in thickness. 2. 8 mm acute hemorrhagic contusion of the right temporal lobe. 3. 10 mm acute hemorrhagic contusion of the left temporal lobe. 4. Acute nondisplaced linear skull fracture involving the left temporal bone. 5. Subgaleal hematomas and abrasions along the anterior and posterior aspects of the head. 6. Soft tissue swelling and bruising in the right periorbital region and right cheek. Electronically signed by: Alek Duenas On 09/09/2019 01:11:23 AM
--- NOTE | 2019-09-09 01:18 | REPVR ---
PROCEDURE INFORMATION: Exam: CT Cervical Spine Without Contrast Exam date and time: 09/09/2019 12:19 AM Age: 34 years old Clinical history: Neck pain; Additional info: Trauma TECHNIQUE: Imaging protocol: Computed tomography images of the cervical spine without contrast. Radiation optimization: All CT scans at this facility use at least one of these dose optimization techniques: automated exposure control; mA and/or kV adjustment per patient size (includes targeted exams where dose is matched to clinical indication); or iterative reconstruction. COMPARISON: No relevant prior studies available. FINDINGS: Vertebrae: There is straightening of the normal cervical lordosisThe atlantooccipital alignment is normal. The atlantoaxial alignment is normal. There is no fracture or subluxation. The vertebral body heights are preserved. There is no cervical rib. C2-C3: The disc height is preserved. No disc herniation is noted. No spinal canal stenosis is noted. No neural foraminal stenosis is noted. The facet joints are unremarkable. C3-C4: The disc height is preserved. No disc herniation is noted. No spinal canal stenosis is noted. No neural foraminal stenosis is noted. The facet joints are unremarkable. C4-C5: The disc height is preserved. No disc herniation is noted. No spinal canal stenosis is noted. No neural foraminal stenosis is noted. The facet joints are unremarkable. C5-C6: The disc height is preserved. There is a mild broad-based posterior disc osteophyte complex. No spinal canal stenosis is noted. No neural foraminal stenosis is noted. The facet joints are unremarkable. C6-C7: The disc height is preserved. No disc herniation is noted. There are endplate spurs projecting anteriorly. No spinal canal stenosis is noted. No neural foraminal stenosis is noted. The facet joints are unremarkable. C7-T1: The disc height is preserved. No disc herniation is noted. No spinal canal stenosis is noted. No neural foraminal stenosis is noted. The facet joints are unremarkable. T1-T2: The disc height is preserved. No disc herniation is noted. No spinal canal stenosis is noted. No neural foraminal stenosis is noted. The facet joints are unremarkable. Other bones/joints: There is an acute nondisplaced linear fracture involving the right mandibular ramus (images 5-7 of the sagittal series 304). Brain: There are small acute bilateral subdural hematomas over the temporal convexities. There is a small amount of pneumocephalus in the extra-axial space in the left temporal convexity. See CT head report on 09/09/2019 for details. Soft tissues: Unremarkable. No soft tissue fluid collection is noted. Mastoid air cells: Mild opacification of the left mastoid air cells. Prevertebral Space: No prevertebral soft tissue swelling is noted. Lungs: The imaged lung apices are clear. IMPRESSION: 1. Straightening of the normal cervical lordosis, but no fracture or subluxation in the cervical spine. 2. Small acute bilateral subdural hematomas over the temporal convexities and a small amount of pneumocephalus in the extra-axial space over the left temporal convexity. See CT head report on 09/09/2019 for details. 3. Acute nondisplaced fracture involving the right mandibular ramus. Electronically signed by: Alek Duenas On 09/09/2019 01:17:53 AM
[2019-09-09 01:23] LABS: INR 1.01
[2019-09-09 01:25] LABS: PARTIAL THROMBOPLASTIN TIME 29.4 SECONDS (25.0-38.4)
--- NOTE | 2019-09-09 01:29 | REPVR ---
PROCEDURE INFORMATION: Exam: CT Abdomen And Pelvis With Contrast Exam date and time: 09/09/2019 12:19 AM Age: 34 years old Clinical history: Abdominal pain; Generalized; Additional info: Trauma TECHNIQUE: Imaging protocol: Computed tomography of the abdomen and pelvis with intravenous contrast. Radiation optimization: All CT scans at this facility use at least one of these dose optimization techniques: automated exposure control; mA and/or kV adjustment per patient size (includes targeted exams where dose is matched to clinical indication); or iterative reconstruction. Contrast material: ISOVUE 370; Contrast volume: 100 ml; Contrast route: IV; COMPARISON: No relevant prior studies available. FINDINGS: Lungs: The imaged lung bases are clear. Heart: No cardiomegaly. No pericardial effusion. Liver: Intact. No liver lesion is seen. The contour of the liver is smooth. No hepatomegaly is noted. Gallbladder and bile ducts: No calcified gallstones are seen. No gallbladder wall thickening, pericholecystic fluid, or pericholecystic inflammatory changes are identified. No dilation of the intrahepatic or extrahepatic bile ducts is noted. Pancreas: Normal. No ductal dilation. Spleen: Normal. No splenomegaly. Incidental note is made of a small accessory spleen. Adrenals: Normal. No mass. Kidneys and ureters: The kidneys are intact. There is a 9 mm simple cyst in superior pole of the right kidney for which follow-up is not necessary. No calculi are seen in the kidneys or ureters. There is no hydronephrosis or hydroureter. There is no perinephric fluid collection. Stomach and bowel: There is no evidence for a bowel obstruction, diverticulosis, diverticulitis, colitis, pneumatosis intestinalis, intussusception, volvulus, or perforated viscus. Appendix: Normal. No evidence for appendicitis. Intraperitoneal space: Unremarkable. No fluid collection. No free air. Retroperitoneal space: Unremarkable. No fluid collection. No mass. Vasculature: The abdominal aorta is patent, normal in caliber, and there is no dissection. The renal arteries, celiac artery, superior mesenteric artery, inferior mesenteric artery, iliac arteries, and common femoral arteries are patent. The portal veins, splenic vein, superior mesenteric vein, inferior mesenteric vein, and renal veins are patent. Incidental note is made of a circumaortic left renal vein. Lymph nodes: Normal. No enlarged lymph nodes. Bladder: Intact. No calculi or masses are noted in the bladder. Reproductive: There are calcifications in the prostate gland. The seminal vesicles are unremarkable. The right testicle is located in the inferior aspect of the right inguinal canal, which may be retractile or undescended (image 31 of the coronal series 206). The left testicle is located in the left scrotal sac. Bones/joints: The imaged bony structures are intact. There is no suspicious osteolytic or osteoblastic lesion. There are degenerative changes in the lumbar spine. There is a 3 mm retrolisthesis of L3 on L4, which is degenerative in nature. Soft tissues: No soft tissue fluid collection is noted. No hernia. IMPRESSION: 1. No CT evidence for acute traumatic injury in the abdomen or pelvis. 2. Right testicle located in the inferior aspect of the right inguinal canal, which may be retractile or undescended. COMMENT: Consistent with the [employer]'s Incidental Findings Committee Report (J [employer] 2010): Unless the patient's specific circumstances suggest otherwise, any liver lesion 0.5 cm or less, any cystic kidney lesion less than 1.0 cm, and/or any adrenal lesion 1.0 cm or less not otherwise characterized in this report as possessing suspicious or indeterminate imaging features is/are highly likely to be benign and do not require follow-up imaging or biopsy. Electronically signed by: Alek Duenas On 09/09/2019 01:29:00 AM
--- NOTE | 2019-09-09 01:29 | REPVR ---
PROCEDURE INFORMATION: Exam: CT Chest With Contrast Exam date and time: 09/09/2019 12:19 AM Age: 34 years old Clinical history: Chest pain; Additional info: Trauma TECHNIQUE: Imaging protocol: Computed tomography of the chest with intravenous contrast. Radiation optimization: All CT scans at this facility use at least one of these dose optimization techniques: automated exposure control; mA and/or kV adjustment per patient size (includes targeted exams where dose is matched to clinical indication); or iterative reconstruction. Contrast material: ISOVUE 370; Contrast volume: 100 ml; Contrast route: IV; COMPARISON: CR Chest, 2 view PA, Lat 11/26/2016 9:16 PM FINDINGS: Lungs: The lungs are clear. There is no evidence for a pulmonary contusion or pulmonary laceration. There is no lung consolidation or mass. No emphysematous changes or interstitial lung disease is noted. The major airways are patent. The tracheobronchial tree is intact. Pleural space: Unremarkable. No pneumothorax. No pleural effusion. Heart: No cardiomegaly. No pericardial effusion. Mediastinum: No mediastinal mass, fluid collection, or pneumomediastinum. Pulmonary arteries: The main pulmonary arteries are patent. This study was not dedicated for the evaluation of the lobar, segmental, and subsegmental pulmonary arteries. Aorta: There is no thoracic aortic aneurysm, pseudoaneurysm, penetrating atherosclerotic ulcer, or dissection. Great vessels off aortic arch: The brachiocephalic artery, imaged proximal portion of the left common carotid artery, and left subclavian artery are intact. No significant stenosis or occlusion of these vessels is noted. Lymph nodes: Normal. No enlarged lymph nodes. Bones/joints: The imaged bony structures are intact. There is no suspicious osteolytic or osteoblastic lesion. Soft tissues: Unremarkable. IMPRESSION: No CT evidence for acute traumatic injury in the chest. Electronically signed by: Alek Duenas On 09/09/2019 01:29:07 AM
[2019-09-09 01:31] LABS: AMPHETAMINES LEVEL URINE POSITIVE (NEGATIVE); BARBITURATES URINE NEGATIVE (NEGATIVE); BENZODIAZEPINES URINE NEGATIVE (NEGATIVE); CANNABINOIDS URINE NEGATIVE (NEGATIVE); COCAINE METABOLITE URINE NEGATIVE (NEGATIVE); METHADONE URINE NEGATIVE (NEGATIVE); OPIATES URINE NEGATIVE (NEGATIVE); PHENCYCLIDINE URINE NEGATIVE (NEGATIVE)
[2019-09-09 01:33] LABS: ALBUMIN 2.4 GM/DL (3.2-5.2); ALT/SGPT 17 U/L (12-78); AMYLASE 10 U/L (25-115); BILIRUBIN,DIRECT < 0.1 MG/DL (0.0-0.2); BILIRUBIN,TOTAL 0.3 MG/DL (0.2-1.0); BLOOD UREA NITROGEN 20 MG/DL (7-18); CALCIUM LEVEL 5.2 MG/DL (8.5-10.1); CARBON DIOXIDE LEVEL 20 MEQ/L (21-32); CHLORIDE LEVEL 117 MEQ/L (98-107); CK-MB VALUE MASS 4.9 NG/ML (<3.6); CPK CREATINE PHOSPHOKINASE 334 U/L (39-308); CREATININE FOR GFR 0.62 MG/DL (0.70-1.30); ETHYL ALCOHOL (ETHANOL) < 0.003 % (0.000-0.010); GLOMERULAR FILTRATION RATE > 60.0 (>60); GLUCOSE, FASTING 64 MG/DL (70-100); LIPASE 29 U/L (73-393); MB/CK RELATIVE INDEX 1.47 (< OR =4); POTASSIUM SERUM 2.5 MEQ/L (3.5-5.1); SODIUM LEVEL 144 MEQ/L (136-145); TOTAL PROTEIN 4.3 GM/DL (6.4-8.2); TROPONIN I < 0.02 NG/ML (< 0.10)
[2019-09-09] MEDS ORDERED: KCL 10MEQ/100ML SWI (KRUN) 10 MEQ in IV 1 EA IV ONE (01:45)
[2019-09-09 01:58] LABS: MAGNESIUM LEVEL 1.4 MG/DL (1.8-2.4)
[2019-09-09] MEDS ORDERED: ceFAZolin 1GM INJ (J0690 PER 500MG) As Ordered ONE (02:21)
[2019-09-09] MEDS ORDERED: INFANRIX VACCINE SYRINGE (DIPHTH/TET/ACEL PERTUS PEDIATRIC) (CPT 90700) IM ONE (02:30)
[2019-09-09] MEDS ORDERED: ceFAZolin SOD 1 GM in D5W MINI-BAG PLUS 50 ML IV ONE (02:30)
[2019-09-09] MEDS ORDERED: ADACEL/BOOSTRIX VACCINE (DIPHTH/PERTUSS/ACELL/TETANUS)0.5ML SYR (90715) IM ONE (02:30)
[2019-09-09] MEDS ORDERED: niCARdipine IV 40 MG in IV 1 EA IV SCH (03:00)
[2019-09-09] MEDS ORDERED: MORPHINE 4 MG/ML 1ML VIAL/SYRINGE (J2270) IV PRN (03:15)
[2019-09-09] MEDS ORDERED: ONDANSETRON 4MG/2ML VIAL (J2405) IV ONE (03:15)
[2019-09-09 03:33] VITALS: BP 152/102
--- NOTE | 2019-09-09 07:30 | REP ---
Clinical: Trauma . Comparison: 11/26/2016 . Findings: The mediastinum and cardiac silhouette are stable and within normal limits for portable technique. The lung benjamin are clear without acute consolidation, effusion, or pneumothorax. Skeletal structures are intact. Impression: No acute cardiopulmonary process appreciated. Electronically Signed by Watson Peña MD 09/09/2019 07:21 A
--- NOTE | 2019-09-09 07:47 | REP ---
Clinical: Trauma. Technique: AP and lateral views of the right wrist. Findings: Generalized age-related changes noted. No acute fracture of the wrist identified. There is a healing fracture along the distal aspect of the fourth metacarpal bone. Impression: 1. No acute wrist fracture. 2. Healing fracture of the fourth metacarpal bone. Electronically Signed by Watson Peña MD 09/09/2019 07:38 A
--- NOTE | 2019-09-09 08:05 | ECGEPIP ---
[facility] - ED Test Date: 2019-09-09 Pat Name: JORDIN BIRD Department: Room: - Gender: Male Pediatric Physician: : [id number] Requested By: BRANNON Hargrove Order Number: [id number] Reading MD: Trever Earl Measurements Intervals [place] Rate: 92 P: 25 CO: 149 QRS: 24 QRSD: 92 T: 46 QT: 365 QTc: 453 Interpretive Statements SINUS RHYTHM SIMILAR TO 11/26/16 Electronically Signed on 09-09-2019 8:04:35 EST by Trever Earl
== END 2019-09-09 03:36 | disposition short-term general hospital (02) ==
LOC: M ED 23:51
DX: S02.641A Fracture of ramus of right mandible, initial encounter for closed fracture (principal); S02.19XA Other fracture of base of skull, initial encounter for closed fracture; G93.89 Other specified disorders of brain; S06.331A Contusion and laceration of cerebrum, unspecified, with loss of consciousness of 30 minutes or less, initial encounter; T76.11XA Adult physical abuse, suspected, initial encounter; Y92.098 Other place in other non-institutional residence as the place of occurrence of the external cause; E87.6 Hypokalemia; E83.51 Hypocalcemia; F19.11 Other psychoactive substance abuse, in remission; F17.200 Nicotine dependence, unspecified, uncomplicated; Z79.899 Other long term (current) drug therapy; Z79.891 Long term (current) use of opiate analgesic; Z23 Encounter for immunization
CPT/HCPCS: 12004; 70450; 70486; 71045; 71260; 72125; 73100; 74177; 80048; 80076; 80307; 82150; 82330; 82550; 82553; 83605; 83690; 83735; 85025; 85610; 85730; 86850; 86900; 86901; 90471; 90715; 93005; 93041; 94760; 96374; 96375; 99285; G0480; J0690; Q9967

== ENCOUNTER 2019-12-11 20:23 | Emergency (ER) | payer OTHER ==
[~2019-12-11] VITALS: Ht 177.8 cm; Wt 97.9 kg
[2019-12-11 21:15] LABS: BASO # 0.1 10^3/uL (0.0-0.2); BASO % 0.5 % (0.0-1.0); EOS # 0.3 10^3/uL (0.0-0.5); EOS % 2.4 % (0.0-3.0); HEMATOCRIT 46.3 % (42.0-52.0); HEMOGLOBIN 15.4 g/dl (13.5-17.5); LYMPH # 2.5 10^3/uL (1.5-5.0); LYMPH % 21.1 % (24.0-44.0); MEAN CORPUSCULAR HEMOGLOBIN 28.7 pg (27.0-33.0); MEAN CORPUSCULAR HGB CONC 33.3 g/dl (32.0-36.5); MEAN CORPUSCULAR VOLUME 86.2 fl (80.0-96.0); MONO # 0.9 10^3/uL (0.0-0.8); MONO % 7.3 % (0.0-5.0); NEUTROPHILS # 7.9 10^3/uL (1.5-8.5); NEUTROPHILS % 68.4 % (36.0-66.0); PLATELET COUNT, AUTOMATED 201 10^3/uL (150-450); RED BLOOD COUNT 5.37 10^6/uL (4.30-6.10); WHITE BLOOD COUNT 11.6 10^3/uL (4.0-10.0)
[2019-12-11 21:45] LABS: ALBUMIN 4.5 GM/DL (3.2-5.2); ALT/SGPT 36 U/L (12-78); BILIRUBIN,DIRECT < 0.1 MG/DL (0.0-0.2); BILIRUBIN,TOTAL 0.5 MG/DL (0.2-1.0); BLOOD UREA NITROGEN 15 MG/DL (7-18); C REACTIVE PROTEIN QUANTITATIV 1.26 MG/DL (0.00-0.30); CALCIUM LEVEL 8.7 MG/DL (8.5-10.1); CARBON DIOXIDE LEVEL 30 MEQ/L (21-32); CHLORIDE LEVEL 103 MEQ/L (98-107); GLOMERULAR FILTRATION RATE > 60.0 (>60); GLUCOSE, FASTING 86 MG/DL (70-100); POTASSIUM SERUM 4.7 MEQ/L (3.5-5.1); SODIUM LEVEL 137 MEQ/L (136-145); TOTAL PROTEIN 8.2 GM/DL (6.4-8.2)
[2019-12-11 22:06] LABS: ERYTHROCYTE SEDIMENTATION RATE 4 mm/hr (0-15)
--- NOTE | 2019-12-11 22:11 | REPVR ---
PROCEDURE INFORMATION: Exam: US Left Non-Vascular Joint or Other Extremity Structure, Limited Upper Extremity Exam date and time: 12/11/2019 9:08 PM Age: 34 years old Clinical indication: Pain; Lower or forearm; Left; Additional info: Swelling left forearm; ? Abscess TECHNIQUE: Imaging protocol: Left US Non-Vascular Joint or Other Extremity Structure. Limited exam of the upper extremity. COMPARISON: No relevant prior studies available. FINDINGS: Soft tissues: In the region of the known swelling on the left forearm no fluid collection is seen to suggest an abscess formation. Soft tissue edema is identified. IMPRESSION: In the region of the known swelling on the left forearm no fluid collection is seen to suggest an abscess formation. Soft tissue edema is identified. Electronically signed by: Christa Herrera On 12/11/2019 22:11:10 PM
[2019-12-11] MEDS ORDERED: ACETAMINOPHEN 325 MG TAB PO ONE (22:30)
[2019-12-11 22:57] VITALS: BP 136/78
[2019-12-11] MEDS ORDERED: DALBAVANCIN 1,500 MG in D5W 250 ML IV ONE (23:00)
== END 2019-12-11 22:59 | disposition home or self-care (01) ==
LOC: M ED 20:23
DX: L03.114 Cellulitis of left upper limb (principal); Z79.899 Other long term (current) drug therapy; Z79.891 Long term (current) use of opiate analgesic; F19.20 Other psychoactive substance dependence, uncomplicated; F17.210 Nicotine dependence, cigarettes, uncomplicated
CPT/HCPCS: 76882; 80048; 80076; 85025; 85652; 86140; 87040; 96365; 99283; J0875

== ENCOUNTER 2020-09-04 18:50 | Emergency (ER) | payer OTHER ==
[~2020-09-04] VITALS: Ht 177.8 cm; Wt 101.8 kg
[2020-09-04] MEDS ORDERED: AMLO1TAB25 (18:57)
[2020-09-04] MEDS ORDERED: ONDANSETRON 4MG/2ML VIAL IV ONE (19:45)
[2020-09-04] MEDS ORDERED: MORPHINE 4 MG/ML 1ML VIAL/SYRINGE (J2270) IV ONE (19:45)
--- NOTE | 2020-09-04 20:34 | REPVR ---
PROCEDURE INFORMATION: Exam: XR Left Shoulder Exam date and time: 09/04/2020 7:37 PM Age: 35 years old Clinical indication: Pain; Shoulder; Left; Additional info: Trauma TECHNIQUE: Imaging protocol: XR Left shoulder. Views: 2 or more views. COMPARISON: No relevant prior studies available. FINDINGS: Bones/joints: There is no fracture or dislocation. The glenohumeral alignment is anatomic. No widening of the acromioclavicular joint space or coracoclavicular space is identified. No arthropathy is noted. The acromial orientation is moderately laterally downsloping with respect to the distal end of the clavicle. The acromion has a concave shape (type II acromion). Soft tissues: Unremarkable. No calcific densities are seen in the rotator cuff or subacromial subdeltoid bursa to suggest calcific tendinitis or calcific subacromial subdeltoid bursitis. IMPRESSION: No fracture or dislocation of the left shoulder. Electronically signed by: Alek Duenas On 09/04/2020 20:34:08 PM
[2020-09-04 21:30] VITALS: BP 160/98
[2020-09-04] MEDS ORDERED: ACETAMINOPHEN 500 MG TAB PO ONE (21:30)
== END 2020-09-04 21:34 | disposition home or self-care (01) ==
LOC: M ED 18:50
DX: S43.402A Unspecified sprain of left shoulder joint, initial encounter (principal); S46.912A Strain of unspecified muscle, fascia and tendon at shoulder and upper arm level, left arm, initial encounter; X50.9XXA Other and unspecified overexertion or strenuous movements or postures, initial encounter; Y92.149 Unspecified place in prison as the place of occurrence of the external cause; Y93.89 Activity, other specified; Y99.8 Other external cause status; I10 Essential (primary) hypertension; F17.200 Nicotine dependence, unspecified, uncomplicated; F19.11 Other psychoactive substance abuse, in remission; Z79.899 Other long term (current) drug therapy; Z87.828 Personal history of other (healed) physical injury and trauma
CPT/HCPCS: 73030; 96374; 96375; 99284; J2270; J2405

== ENCOUNTER → 2022-11-14 | Outpatient (REF) | payer OTHER ==
[~2022-11-14] MED LIST changes: +AMLO1TAB25
[2022-11-14 15:18] LABS: GC DNA AMPLIFICATION NEGATIVE (NEGATIVE)
== END ==
LOC: M LAB REF 12:29
PROVIDERS: ATTEND Family Medicine
DX: F11.20 Opioid dependence, uncomplicated (principal)

== ENCOUNTER → 2024-04-22 | Outpatient (CLI) | payer OTHER ==
[2024-04-22 14:23] LABS: BASO # 0.1 10^3/uL (0.0-0.2); BASO % 0.8 % (0.0-1.0); EOS # 0.3 10^3/uL (0.0-0.5); EOS % 4.8 % (0.0-3.0); HEMATOCRIT 49.8 % (42.0-52.0); HEMOGLOBIN 16.8 g/dl (13.5-17.5); LYMPH # 2.3 10^3/uL (1.5-5.0); LYMPH % 32.2 % (24.0-44.0); MEAN CORPUSCULAR HGB CONC 33.7 g/dl (32.0-36.5); MEAN CORPUSCULAR VOLUME 85.9 fl (80.0-96.0); MONO # 0.6 10^3/uL (0.0-0.8); MONO % 8.3 % (2.0-8.0); NEUTROPHILS # 3.8 10^3/uL (1.5-8.5); NEUTROPHILS % 53.2 % (36.0-66.0); PLATELET COUNT, AUTOMATED 172 10^3/uL (150-450); WHITE BLOOD COUNT 7.1 10^3/uL (4.0-10.0)
[2024-04-22 15:00] LABS: BACTERIA, URINE AUTO NEGATIVE (NEGATIVE); MUCUS, URINE SMALL (NEGATIVE); RBC, URINE AUTO 0 /HPF (0-3); SQUAMOUS EPITHELIAL CELL UR AU 0 /HPF (0-6); WBC, URINE AUTO 2 /HPF (0-3)
[2024-04-22 15:02] LABS: ALBUMIN 4.2 G/DL (3.2-5.2); ALKALINE PHOSPHATASE 90 U/L (46-116); ALT/SGPT 35 U/L (7.0-40); AST/SGOT 21 U/L (<34); BILIRUBIN,TOTAL 0.6 MG/DL (0.3-1.2); BLOOD UREA NITROGEN 25 MG/DL (9-23); CALCIUM LEVEL 9.7 MG/DL (8.5-10.1); CARBON DIOXIDE LEVEL 29 MMOL/L (20-31); CHLORIDE LEVEL 105 MMOL/L (98-107); CREATININE FOR GFR 0.88 MG/DL (0.70-1.30); GLOMERULAR FILTRATION RATE > 60.0 (>60); GLUCOSE, FASTING 85 MG/DL (60-100); POTASSIUM SERUM 4.8 MMOL/L (3.5-5.1); SODIUM LEVEL 140 MMOL/L (136-145)
[2024-04-22 15:14] LABS: HEPATITIS B SURFACE ANTIGEN NEGATIVE (NEGATIVE)
[2024-04-22 15:35] LABS: HEPATITIS B CORE ANTIBODY IGM NEGATIVE (NEGATIVE)
[2024-04-22 15:36] LABS: HEPATITIS C VIRUS ABY INDEX < 0.02 INDEX (<0.8)
== END ==
LOC: M LAB 13:34
PROVIDERS: ATTEND Nurse Practitioner Adult Health
DX: Z00.8 Encounter for other general examination (principal)

== ENCOUNTER → 2024-08-07 | Outpatient (CLI) | payer OTHER ==
[2024-08-07 09:56] LABS: BASO % 0.3 % (0.0-1.0); EOS # 0.4 10^3/uL (0.0-0.5); EOS % 5.8 % (0.0-3.0); HEMOGLOBIN 14.2 g/dl (13.5-17.5); LYMPH % 32.3 % (24.0-44.0); MEAN CORPUSCULAR HEMOGLOBIN 29.9 pg (27.0-33.0); MEAN CORPUSCULAR HGB CONC 35.5 g/dl (32.0-36.5); MEAN CORPUSCULAR VOLUME 84.2 fl (80.0-96.0); MONO % 15.8 % (2.0-8.0); NEUTROPHILS # 2.9 10^3/uL (1.5-8.5); NEUTROPHILS % 45.5 % (36.0-66.0); PLATELET COUNT, AUTOMATED 170 10^3/uL (150-450); RED BLOOD COUNT 4.75 10^6/uL (4.30-6.10); WHITE BLOOD COUNT 6.3 10^3/uL (4.0-10.0)
[2024-08-07 10:28] LABS: ALBUMIN 3.9 G/DL (3.2-5.2); ALKALINE PHOSPHATASE 68 U/L (46-116); ALT/SGPT 85 U/L (7.0-40); AST/SGOT 85 U/L (<34); BILIRUBIN,TOTAL 0.9 MG/DL (0.3-1.2); BLOOD UREA NITROGEN 35 MG/DL (9-23); CALCIUM LEVEL 9.6 MG/DL (8.5-10.1); CARBON DIOXIDE LEVEL 30 MMOL/L (20-31); CHLORIDE LEVEL 101 MMOL/L (98-107); CREATININE FOR GFR 1.18 MG/DL (0.70-1.30); GLOMERULAR FILTRATION RATE > 60.0 (>60); GLUCOSE, FASTING 89 MG/DL (60-100); POTASSIUM SERUM 4.3 MMOL/L (3.5-5.1); SODIUM LEVEL 135 MMOL/L (136-145); TOTAL PROTEIN 6.6 G/DL (5.7-8.2)
[2024-08-07 10:50] LABS: HEPATITIS B SURFACE ANTIGEN NEGATIVE (NEGATIVE)
[2024-08-07 11:01] LABS: HIV 1&2 SCREEN NEGATIVE (NEGATIVE)
[2024-08-07 11:09] LABS: HEPATITIS C VIRUS ABY INDEX < 0.02 INDEX (<0.8)
[2024-08-07 11:10] LABS: HEPATITIS B CORE ANTIBODY IGM NEGATIVE (NEGATIVE)
[2024-08-07 12:48] LABS: GC DNA AMPLIFICATION NEGATIVE (NEGATIVE)
== END ==
LOC: M LAB 08:58
PROVIDERS: ATTEND Family Medicine
DX: F11.20 Opioid dependence, uncomplicated (principal)